=== PATIENT | male | born 1995 | race Caucasian/White ===

== ENCOUNTER 2016-08-15 23:13 | Day surgery (SDC) | payer MEDICAID ==
[2016-08-16] MEDS ORDERED: KETOROLAC 60 MG/2 ML VIAL IVP STA (01:17)
[2016-08-16] MEDS ORDERED: KETOROLAC 30 MG/ML VIAL ONE (01:18)
[2016-08-16] MEDS ORDERED: SODIUM CHLORIDE FLUSH 0.9% 10 ML SYRINGE IVP PRN (01:55)
[2016-08-16] MEDS ORDERED: ONDANSETRON 4 MG/2 ML VIAL IVP STA (02:04)
[2016-08-16] MEDS ORDERED: HYDROmorphone 1 MG/ML SYRINGE IM PRN (02:07)
[2016-08-16] MEDS: CIPROFLOXACIN 400 MG/200 ML 200 ML IV SCH ×2 (03:30→14:58)
[2016-08-16] MEDS: LACTATED RINGERS 1,000 ML IV SCH ×2 (03:30→11:10)
[2016-08-16] MEDS: metroNIDAZOLE 500 MG/100 ML 100 ML IV SCH ×4 (04:57→17:24)
[2016-08-16] MEDS: SODIUM CHLORIDE FLUSH 0.9% 10 ML SYRINGE IVP SCH ×2 (05:40→15:01)
[2016-08-16] MEDS ORDERED: DEXAMETHASONE 4 MG/ML VIAL IVP ONE (08:15)
[2016-08-16] MEDS ORDERED: ACETAMINOPHEN 1,000 MG/100 ML VIAL IV ONE (08:15)
[2016-08-16] MEDS ORDERED: PROPOFOL 200 MG/20 ML VIAL IVP ONE (08:15)
[2016-08-16] MEDS ORDERED: MIDAZOLAM 2 MG/2 ML VIAL IVP ONE (08:15)
[2016-08-16] MEDS ORDERED: LIDOCAINE-MPF 2% 5 ML VIAL IM ONE (08:15)
[2016-08-16] MEDS ORDERED: fentaNYL 100 MCG/2 ML VIAL IVP ONE (08:15)
[2016-08-16] MEDS ORDERED: ONDANSETRON 4 MG/2 ML VIAL IVP ONE (08:15)
[2016-08-16] MEDS ORDERED: BUPIVACAINE 0.5% PF 30 ML VIAL SUBQ ONE ×2 (08:24)
[2016-08-16] MEDS ORDERED: LIDOCAINE 1%-EPI 1:100000 20 ML MDV SUBQ ONE ×2 (08:24)
[2016-08-16] MEDS ORDERED: LACTATED RINGERS 1,000 ML IV ONE ×3 (08:25→10:05)
[2016-08-16] MEDS ORDERED: MEPERIDINE 50 MG/ML SYRINGE ONE (09:25)
[2016-08-16] MEDS: HYDROmorphone 1 MG/ML SYRINGE ONE ×2 (09:47→10:00)
[2016-08-16] MEDS ORDERED: oxyCOD/ACETAMIN 5 MG/325 MG TABLET PO PRN (10:49)
[2016-08-16] MEDS ORDERED: HYDROmorphone 1 MG/ML SYRINGE IVP PRN (11:30)
[2016-08-16] MEDS: ONDANSETRON 4 MG/2 ML VIAL IVP PRN ×2 (13:41→17:17)
== END 2016-08-16 19:05 | disposition home or self-care (01) ==
DX: K35.80 Unspecified acute appendicitis (principal); Z88.0 Allergy status to penicillin; F17.210 Nicotine dependence, cigarettes, uncomplicated
CPT/HCPCS: 36415; 44970; 74176; 80053; 83690; 85025; 96374; 99283; 99285; A9270; J0131; J1170; J7120

== ENCOUNTER 2018-03-19 01:18 | Emergency (ER) | payer MEDICAID ==
[2018-03-19] MEDS ORDERED: NAPROXEN 250 MG TABLET PO STA (02:18)
--- NOTE | 2018-03-19 03:04 | XRAY Report ---
Reason: ankle injury Procedure Date: 03/19/2018 Accession Number: [id number] / [id number] Procedure: XR - Ankle 3 View RT CPT Code: FULL RESULT: EXAM: RIGHT ANKLE RADIOGRAPHY EXAM DATE: 03/19/2018 02:51 AM. CLINICAL HISTORY: Ankle injury. COMPARISON: None. TECHNIQUE: 3 views. FINDINGS: Bones: Probable nondisplaced posterior malleolar fracture. No other fracture seen. Joints: Ankle mortise appears symmetric. No significant degenerative changes. Soft Tissues: There is soft tissue swelling. IMPRESSION: Probable nondisplaced posterior malleolar fracture. No other fracture seen. Since this is a rare fracture in isolation, suggest imaging of the proximal tibia/fibula to exclude a concomitant proximal fibular fracture. RADIA
[2018-03-19] MEDS ORDERED: HYDROcod/ACETAM 5/325 MG TABLET PO STA (03:14)
--- NOTE | 2018-03-19 03:54 | XRAY Report ---
Reason: ankle fx, eval for proximal fx Procedure Date: 03/19/2018 Accession Number: [id number] / [id number] Procedure: XR - Tib/Fib RT CPT Code: FULL RESULT: EXAM: RIGHT TIBIA/FIBULA RADIOGRAPHY EXAM DATE: 03/19/2018 03:43 AM. CLINICAL HISTORY: Ankle fracture, evaluate for proximal fracture. COMPARISON: ANKLE 3 VIEW RT 03/19/2018 2:40 AM. TECHNIQUE: 2 views. FINDINGS: Bones: Nondisplaced posterior malleolar distal tibial fracture again noted. No proximal lower leg fracture seen. Joints: The visualized knee and ankle joints are normal. No effusions. Soft Tissues: Ankle region swelling. IMPRESSION: Nondisplaced posterior malleolar distal tibial fracture again noted. No proximal lower leg fracture seen. RADIA
--- NOTE | 2018-03-19 04:06 | ED Physician Documentation ---
PD HPI LOWER EXT INJURY - Stated complaint Stated Complaint: R LEG PX - Chief complaint Chief Complaint: Ext Problem - History of Present Illness PD HPI LOW EXT INJURY LOCATION: Right, Knee Type of injury: Fall, Twist Where injury occurred: Other (While dancing) Timing - onset: Today Timing - details: Abrupt onset Severity Comments: Moderate Improved by: Immobilization Worsened by: Moving Associated symptoms: Swelling, Discolored. No: Weakness, Numbness Contributing factors: No: Anticoagulated Similar symptoms before: No: Has not had sx before Recently seen: No: Not recently seen - Additional information Additional information: Denies injury to his head, neck, torso or upper extremities Review of Systems Constitutional: denies: Fever Eyes: denies: Loss of vision Ears: denies: Ear pain Throat: denies: Dental pain / toothache Cardiac: denies: Chest pain / pressure GI: denies: Abdominal Pain Musculoskeletal: reports: Extremity pain, Joint pain, Joint swelling. denies: Neck pain Neurologic: denies: Headache PD PAST MEDICAL HISTORY - Past Medical History Past Medical History: Yes Psych: Anxiety - Past Surgical History Past Surgical History: No - Present Medications Home Medications: Ambulatory Orders Medication Instructions Recorded Confirmed Ciprofloxacin/Ciprofloxa HCl 500 mg PO BID #14 tbmp.24hr 08/16/16 [Ciprofloxacin ER 500 mg Tablet] Metronidazole 500 mg PO TID #21 tablet 08/16/16 Promethazine [Phenergan] 25 mg PO Q6H #10 tablet 08/16/16 oxyCODONE/ACET 5/325 [Percocet 5 2 each PO Q4-6H #30 tablet 08/16/16 mg/325 mg] Hydrocodone/Acetaminophen 1 each PO Q6H PRN #14 tablet 03/19/18 [Hydrocodon-Acetaminophen 5-325] - Allergies Allergies/Adverse Reactions: Allergies Allergy/AdvReac Type Severity Reaction Status Date / Time Penicillins Allergy Unknown Verified 03/19/18 01:31 - Social History Does the pt smoke?: No Smoking Status: Former smoker Does the pt drink ETOH?: Yes Does the pt have substance abuse?: No - Immunizations Immunizations are current?: Yes - POLST Patient has POLST: No PD ED PE NORMAL - General General: Alert and oriented X 3, No acute distress - HEENT HEENT: Atraumatic, PERRL, EOMI, Ears normal - Derm Derm: Normal color - Extremities Extremities: No deformity. No: No tenderness to palpate (The patient has tenderness to palpation of the right ankle and there is some mild swelling and ecchymosis. The patient has no tenderness in the foot or proximal fibular head. The patient has full active range of motion of the hip and knee. The patient has a normal radial pulse and normal cap refill), Normal ROM s pain - Neuro Neuro: Alert and oriented X 3, Normal speech - Psych Psych: Normal affect Results - Vitals Vitals: Vital Signs - 24 hr 03/19/18 01:27 Temperature 36.3 C L Heart Rate 97 Respiratory 18 Rate Blood Pressure 137/82 H O2 Saturation 97 Oxygen O2 Source Room air - Rads (name of study) XR ankle Radiology: Final report received (IMPRESSION: Nondisplaced posterior malleolar distal tibial fracture again noted. No proximal lower leg fracture) PD MEDICAL DECISION MAKING - ED course ED course: The patient will be placed in a posterior splint, I have advised that he should be nonweightbearing and recommended close follow-up with orthopedics for definitive management. The patient understands and agrees. I discussed warning signs and recommended returning to the emergency department immediately for worsening or any concerns. - Sepsis Event Vital Signs: Vital Signs - 24 hr 03/19/18 01:27 Temperature 36.3 C L Heart Rate 97 Respiratory 18 Rate Blood Pressure 137/82 H O2 Saturation 97 Oxygen O2 Source Room air Departure - Departure Disposition: 01 Home, Self Care Clinical Impression: Ankle fracture Qualifiers: Encounter type: initial encounter Fracture type: closed Laterality: right Qualified Code(s): S82.891A - Other fracture of right lower leg, initial encounter for closed fracture Condition: Good Instructions: Ankle Fx Follow-Up: Lee Jones MD [Provider Admit Priv/Credential] - (Call on Tuesday to schedule an appointment for definitive management of your ankle fracture) Prescriptions: Hydrocodone/Acetaminophen [Hydrocodon-Acetaminophen 5-325] 1 each PO Q6H PRN #14 tablet PRN Reason: pain Comments: Please do not bear weight on your ankle. Please follow-up with orthopedics. Please return to the emergency department immediately for worsening symptoms or any concerns
[2018-03-19 04:23] VITALS: BP 133/74
== END 2018-03-19 04:52 | disposition home or self-care (01) ==
LOC: ED 01:18
DX: S82.891A Other fracture of right lower leg, initial encounter for closed fracture (principal); W19.XXXA Unspecified fall, initial encounter; X50.1XXA Overexertion from prolonged static or awkward postures, initial encounter; Y93.41 Activity, dancing; Z87.891 Personal history of nicotine dependence
CPT/HCPCS: 29515; 73590; 73610; 99283; A9270

== ENCOUNTER 2019-07-25 21:36 | Emergency (ER) | payer MEDICAID ==
[2019-07-25] MEDS ORDERED: IBUPROFEN 800 MG TABLET PO STA (21:53)
[2019-07-25 21:57] LABS: RAPID STREP SCREEN Negative (Negative)
--- NOTE | 2019-07-25 22:02 | ED Physician Documentation ---
History of Present Illness - Stated complaint Stated Complaint: DIFF BREATHING - Chief complaint Chief Complaint: Heent - History obtained from History obtained from: Patient (24-year-old history of anxiety presented with substernal sharp chest pain to deep inspiration for last 2 days. Last week patient had a urinary tract upper respiratory tract infection with rhinorrhea and cough. This has improved. No complaint of fever no chill. No nausea no vomiting. Since yesterday there is the sensation of sharp chest pain on deep inspiration. Patient appears mildly anxious. Pain is nonradiating), Family - History of Present Illness Timing: Yesterday Pain level max: 5 Pain level now: 5 Review of Systems Ten Systems: 10 systems reviewed and negative Constitutional: reports: Reviewed and negative Eyes: reports: Reviewed and negative Ears: reports: Reviewed and negative Nose: reports: Reviewed and negative Throat: reports: Reviewed and negative Cardiac: reports: Chest pain / pressure, Reviewed and negative Respiratory: reports: Reviewed and negative GI: reports: Reviewed and negative : reports: Reviewed and negative Skin: reports: Reviewed and negative Musculoskeletal: reports: Reviewed and negative Neurologic: reports: Reviewed and negative Psychiatric: reports: Reviewed and negative Endocrine: reports: Reviewed and negative Immunocompromised: reports: Reviewed and negative PD PAST MEDICAL HISTORY - Past Medical History Past Medical History: Yes Psych: Anxiety - Past Surgical History Past Surgical History: No - Present Medications Home Medications: Ambulatory Orders Medication Instructions Recorded Confirmed Ciprofloxacin/Ciprofloxa HCl 500 mg PO BID #14 tbmp.24hr 08/16/16 [Ciprofloxacin ER 500 mg Tablet] Metronidazole 500 mg PO TID #21 tablet 08/16/16 Promethazine [Phenergan] 25 mg PO Q6H #10 tablet 08/16/16 oxyCODONE/ACET 5/325 [Percocet 5 2 each PO Q4-6H #30 tablet 08/16/16 mg/325 mg] Hydrocodone/Acetaminophen 1 each PO Q6H PRN #14 tablet 03/19/18 [Hydrocodon-Acetaminophen 5-325] Ibuprofen [Motrin] 800 mg PO Q8H PRN #30 tablet 07/25/19 - Allergies Allergies/Adverse Reactions: Allergies Allergy/AdvReac Type Severity Reaction Status Date / Time Penicillins Allergy Unknown Verified 07/25/19 22:04 - Social History Does the pt smoke?: No Smoking Status: Former smoker Does the pt drink ETOH?: Yes Does the pt have substance abuse?: No - Immunizations Immunizations are current?: Yes - POLST Patient has POLST: No PD ED PE NORMAL - Vitals Vital signs reviewed: Yes - General General: Alert and oriented X 3, No acute distress - HEENT HEENT: PERRL - Neck Neck: Supple, no meningeal sign - Cardiac Cardiac: RRR, No murmur - Respiratory Respiratory: Clear bilaterally, Other (sharp chest pain during inspiration) - Abdomen Abdomen: Normal bowel sounds, Soft, Non tender, Non distended - Derm Derm: Warm and dry - Extremities Extremities: No deformity - Neuro Neuro: Alert and oriented X 3 - Psych Psych: Normal mood, Normal affect Results - Vitals Vitals: Vital Signs - 24 hr 07/25/19 07/25/19 21:38 22:29 Temperature 37.0 C Heart Rate 83 72 Respiratory 16 17 Rate Blood Pressure 126/90 H 136/88 H O2 Saturation 98 99 Oxygen O2 Source Room air - Labs Labs: Laboratory Tests 07/25/19 21:45 Group A Strep Rapid Negative PD MEDICAL DECISION MAKING - ED course Complexity details: d/w patient, d/w family ED course: Patient is given impression of pleuritic chest pain that may be related to recent URIs. In emergency room patient is alert and oriented comfortable. Suspicion for acute coronary syndrome is minimum. He has no risk factor for cardiac issue. He is recommended to take ibuprofen 800 mg every 8 hours as needed for the chest wall pain. If symptoms worsen, please contact primary care doctor's office for reassessment and or return to the emergency room for further evaluation Departure - Departure Disposition: 01 Home, Self Care Clinical Impression: Pleuritis Condition: Good Record reviewed to determine appropriate education?: No Instructions: Pleurisy Prescriptions: Ibuprofen [Motrin] 800 mg PO Q8H PRN #30 tablet PRN Reason: PAIN &/OR FEVER Comments: Please take ibuprofen 800 mg as needed every 8 hours for the pain to your chest. Establish and follow-up with your primary care doctor in the next 5 to 7 days. If there is worsening chest pain that is not resolving, please return to the emergency room for further management Discharge Date/Time: 07/25/19 22:30
[2019-07-25 22:30] VITALS: BP 136/88
== END 2019-07-25 22:30 | disposition home or self-care (01) ==
LOC: ED 21:36
DX: R09.1 Pleurisy (principal); Z87.891 Personal history of nicotine dependence; F41.9 Anxiety disorder, unspecified
CPT/HCPCS: 87070; 87077; 87430; 99283; 99284; A9270

== ENCOUNTER 2021-12-04 12:53 | Outpatient (CLI) | payer MEDICAID ==
--- NOTE | 2021-12-04 14:18 | Ultrasound Report ---
PROCEDURE: Testicle INDICATIONS: MASS IN LEFT SCROTUM TECHNIQUE: Real-time scanning was performed of the scrotum and testicles, with image documentation. Color and p ulse Doppler interrogation was performed of both testicles. COMPARISON: None. FINDINGS: Right: Testicle is normal in size at 6.0 x 2.8 x 3.5 cm, and homogenous in echotexture. Epididymis is normal in overall size and morphology. No hydrocele or varicoceles. Overlying scrotal skin is no rmal in thickness. Left: Testicle is normal in size at 5.9 x 2.6 x 4.0 cm, and homogeneous in echotexture. Small left e pididymal head cysts. Otherwise the epididymis is normal in overall size and morphology. No hydrocel e or varicoceles. Overlying scrotal skin is normal in thickness. Doppler: Color and pulse Doppler demonstrate normal and symmetric arterial flow in both testicles. A left inguinal hernia containing fat is noted with a 1.3 cm defect and is nonreducible. The hernia m easures approximately 7.0 x 2.2 x 4.2 cm and extends from the scrotum superiorly at the spermatic cor d. IMPRESSION: 1. Normal scrotum/left testicle. 2. Fat-containing nonreducing left inguinal hernia measuring 7.0 x 2.2 x 4.2 cm. Reviewed by: Romario Meehan on 12/04/2021 2:16 PM PDT Approved by: Romario Meehan on 12/04/2021 2:16 PM PDT Station ID: [id number]
== END 2021-12-04 12:54 | disposition home or self-care (01) ==
LOC: DI 12:53
PROVIDERS: ATTEND Student in an Organized Health Care Education/Training Program
DX: K40.90 Unilateral inguinal hernia, without obstruction or gangrene, not specified as recurrent (principal)

== ENCOUNTER 2022-03-08 09:22 | Day surgery (SDC) | payer OTHER ==
[2022-03-08] MEDS ORDERED: LACTATED RINGERS 1,000 ML IV ONE ×2 (09:33→13:08)
[2022-03-08] MEDS ORDERED: ACETAMINOPHEN 500 MG TABLET PO ONE (09:38)
[2022-03-08] MEDS ORDERED: CEFAZOLIN 2G/50ML 0.9% NS 2 GM/50 ML BAG IV ONE (09:38)
[2022-03-08] MEDS ORDERED: CELECOXIB 100 MG CAPSULE PO ONE (09:38)
[2022-03-08] MEDS ORDERED: GABAPENTIN 400 MG CAPSULE ONE (09:38)
[2022-03-08] MEDS ORDERED: LIDOCAINE MPF 2%-EPI 1:200000 20 ML VIAL ONE (10:15)
[2022-03-08] MEDS ORDERED: HYDROmorphone 0.5 MG/0.5 ML SYRINGE IVP PRN ×2 (10:19→13:05)
[2022-03-08] MEDS ORDERED: METOCLOPRAMIDE 10 MG/2 ML VIAL IVP PRN (10:19)
[2022-03-08] MEDS ORDERED: ePHEDrine 50 MG/ML VIAL IVP PRN (10:19)
[2022-03-08] MEDS ORDERED: ATROPINE ABBOJECT 1 MG/10 ML SYRINGE IVP PRN (10:19)
[2022-03-08] MEDS ORDERED: ONDANSETRON 4 MG/2 ML VIAL IVP PRN ×2 (10:19→13:05)
[2022-03-08] MEDS ORDERED: MORPHINE 2 MG/ML CARPUJECT IVP PRN (10:19)
[2022-03-08] MEDS ORDERED: NALOXONE 0.4 MG/ML VIAL IVP PRN (10:19)
[2022-03-08] MEDS ORDERED: fentaNYL 100 MCG/2 ML VIAL IVP PRN (10:19)
--- NOTE | 2022-03-08 10:19 | ANESTHESIA ---
Pre-Anesthesia VS, & Labs - Diagnosis left inguinal hernia - Procedure left inguinal hernia repair Vital Signs: Temp Pulse Resp BP Pulse Ox 36.7 C 59 L 16 126/78 98 03/08/22 09:33 03/08/22 09:33 03/08/22 09:33 03/08/22 09:33 03/08/22 09:33 Height: 6 ft Weight (kg): 105.9 kg Body Mass Index: 31.6 BMI Classification: Obese - NPO >8 hours Home Medications and Allergies Home Medications: Ambulatory Orders Ibuprofen [Motrin] 800 mg PO BID 03/05/22 Ibuprofen [Motrin] 800 mg PO BID 03/05/22 Allergies/Adverse Reactions: Allergies Allergy/AdvReac Type Severity Reaction Status Date / Time Penicillins Allergy Unknown Verified 12/01/21 10:27 Anes History & Medical History - Anesthetic History Anesthesia Complications: reports: No previous complications - Medical History Cardiovascular: reports: None Pulmonary: reports: None Gastrointestinal: reports: None Urinary: reports: None Neuro: reports: None Musculoskeletal: reports: None Endocrine/Autoimmune: reports: None Blood Disorders: reports: Anemia Skin: reports: None Smoking Status: Former smoker History of Cancer?: No - Surgical History General: reports: Appendectomy Exam General: Alert, Oriented x3 Dental: WNL Mouth Opening: Greater than 4 Fingerbreadths Mallampati classification: II Thyromental Distance: greater than 6 cm Respiratory: Lungs clear Cardiovascular: Regular rate Plan Anesthesia Type: General Consent for Procedure(s) Verified and Reviewed: Yes Code Status: Attempt Resuscitation ASA classification: 2-Mild systemic disease Is this case an emergency?: No
[2022-03-08] MEDS ORDERED: MIDAZOLAM 2 MG/2 ML VIAL ONE (10:39)
[2022-03-08] MEDS ORDERED: LIDOCAINE-MPF 2% 5 ML VIAL ONE (10:47)
[2022-03-08] MEDS ORDERED: ONDANSETRON 4 MG/2 ML VIAL ONE (10:56)
[2022-03-08] MEDS ORDERED: BUPIVACAINE 0.25% PF 10 ML VIAL ONE (10:56)
[2022-03-08] MEDS ORDERED: LIDOCAINE MPF 2%-EPI 1:200000 10 ML VIAL SUBQ ONE ×2 (10:56)
[2022-03-08] MEDS ORDERED: DEXAMETHASONE 4 MG/ML VIAL ONE (10:56)
[2022-03-08] MEDS ORDERED: BUPIVACAINE 0.25% PF 10 ML VIAL SUBQ ONE ×2 (10:57)
[2022-03-08] MEDS ORDERED: LACTATED RINGERS 1,000 ML IV SCH (11:00)
[2022-03-08] MEDS ORDERED: fentaNYL 100 MCG/2 ML VIAL ONE (11:15)
[2022-03-08] MEDS ORDERED: HYDROcod/ACETAM 5/325 MG TABLET PO PRN (13:05)
--- NOTE | 2022-03-08 13:14 | OPERATIVE REPORT ---
Operative Report - General Procedure Date: 03/08/22 Pre-Op Diagnosis: left inguinal hernia Procedure Performed: open left inguinal hernia repair with mesh Post Op Diagnosis: indirect left inguinal hernia - Procedure Note Primary Surgeon: Dr. Sirisha Navas Anesthesia Technique: General LMA, Local, Regional block Pathology: hernia sac sent to path Estimated Blood Loss (mL): 20 Indications: The patient has developed left groin pain over the last several years. He has noted a bulge in the area for quite some time. It has become increasingly painful to him especially with activity. He was seen and evaluated in the clinic where he was diagnosed with a large direct inguinal hernia. At that time , we discussed the risks, benefits, and alternatives of open inguinal hernia repair with mesh. These risks include but are not limited to bleeding, infection, damage to surrounding structures, infection of the mesh requiring removal, recurrence of the hernia, chronic pain, and the need for further surgeries or procedures. The patient voiced understanding, his questions were answered, and he wished to proceed. A consent was signed by the patient in clinic. Findings: 1. Large indirect inguinal hernia with extensive scarring 2. Ilioinguinal nerve sacrificed 3. PHSE mesh used Complications: none - Other Other Information/Narrative: The patient was brought to the operative suite and placed in the supine position. General LMA anesthesia was induced. Preop antibiotics were given and ERAS protocol was followed. Patient was prepped and draped in the usual sterile fashion. A preop surgical timeout was performed. Next, local was used to perform an ilioinguinal nerve block. The incision was planned overlying the area of the hernia following the skin crease. An incision was made with a 15 blade scalpel and carried down through the skin and subcutaneous tissues to the level of the external abdominal oblique. Excellent hemostasis was maintained. Local was injected just deep to the external abd ominal oblique and the external abdominal oblique muscle was opened using a 15 blade scalpel following the muscle fibers. The incision was enlarged using Metzenbaum scissors through the external ingui nal ring. Next, the cord structures were isolated from the surrounding tissues and a Winters drain was passed around them. The hernia sac was identified and isolated from the surrounding tissues taking great care to avoid any cord structures. This was quite difficult and took quite sometime due to the large size of the sac and extensive scarring. The patient was noted to have an indirect inguinal hernia. Once the sac was completely isolated from the surrounding tissues, a high suture ligation of the sac was preformed with 2-0 vicry. The stump from the sac was reduced and the preperitoneal space was developed. A PHSE Prolene hernia system was brought onto the field and placed in the preperitoneal space the external component was opened. It was tacked medially and inferiorly to the pubic tubercle using a 2-0 PDS suture. It was also tacked to the shelving edge inferiorly and laterally and to the shelving edge superiorly to allow it to lie flat. A slit was made to accommodate the cord structures and the external inguinal ring was re-created. Care was taken to ensure that there was adequate space to accommodate the cord structures and swelling postoperatively. The corners of the mesh were reapproximated to re-create this ring using 2-0 PDS. Additional local was injected into the tissues in the areas where the sutures were placed. Next, the external abdominal oblique muscle was reapproximated with 2-0 Vicryl in a running fashion. Then, Devendra's fascia was reapproximated with 3-0 Vicryl in an interrupted fashion. The subcutaneous tissues were irrigated with warm normal saline and hemostasis was confirmed. The deep dermal tissues were reapproximated with 3-0 Vicryl in an interrupted fashion. Finally, 4-0 Monocryl was used to reapproximate the skin edges in a running subcuticular fashion. A sterile dressing of skin glue was placed. The patient tolerated the procedure well. Both testicles were noted to be within the scrotum at the end of the case. There were no complications.
[2022-03-08] MEDS ORDERED: HYDROcod/ACETAM 5/325 MG TABLET ONE (13:59)
[2022-03-08 14:07] VITALS: BP 145/98
--- NOTE | 2022-03-08 16:05 | ANESTHESIA POST OP EVALUATION ---
Anesthesia Post Eval - Post Anesthesia Eval Vitals: Last Vital Signs Temp 36.4 C L 03/08/22 14:06 Pulse 51 L 03/08/22 14:06 Resp 16 03/08/22 14:06 BP 145/98 H 03/08/22 14:06 Pulse Ox 98 03/08/22 14:06 CV Function Including HR & BP: Stable Pain Control: Satisfactory Nausea & Vomiting: Negative Mental Status: Baseline Respiratory Status: Airway Patent Hydration Status: Satisfactory Anesthesia Complications: None
== END 2022-03-08 09:23 | disposition home or self-care (01) ==
LOC: SDS 09:22
PROVIDERS: ATTEND Surgery
PROC: 0YU60JZ Supplement Left Inguinal Region with Synthetic Substitute, Open Approach (ICD-10-PCS; principal; 2022-03-08 12:15)
DX: K40.90 Unilateral inguinal hernia, without obstruction or gangrene, not specified as recurrent (principal); E66.9 Obesity, unspecified; Z68.31 Body mass index [BMI] 31.0-31.9, adult; Z87.891 Personal history of nicotine dependence
CPT/HCPCS: 49505; A9270; C1713; J0690; J7120

== ENCOUNTER 2023-01-02 17:59 | Emergency (ER) | payer BC, OTHER ==
[2023-01-02 18:07] VITALS: BP 147/93
[2023-01-02] MEDS ORDERED: IBUPROFEN 600 MG TABLET PO STA (18:40)
[2023-01-02] MEDS ORDERED: oxyCODONE 5 MG TABLET PO STA (18:40)
[2023-01-02] MEDS ORDERED: CLINDAMYCIN 150 MG CAPSULE PO STA (18:40)
[2023-01-02] MEDS ORDERED: oxyCODONE/ACET 5/325 Prepack 4 PO STA (18:40)
--- NOTE | 2023-01-02 18:41 | ED Physician Documentation ---
History of Present Illness - Stated complaint Stated Complaint: TOOTH INJ - Chief complaint Chief Complaint: Heent - History obtained from History obtained from: Patient (27-year-old gentleman has had progressive severe dental pain since last night. He is seeing his dentist tomorrow.) PD PAST MEDICAL HISTORY - Past Medical History Cardiovascular: None Respiratory: None Neuro: None Endocrine/Autoimmune: None GI: None : None HEENT: None Psych: None, Anxiety Musculoskeletal: None Derm: None - Past Surgical History Past Surgical History: No General: Appendectomy - Present Medications Home Medications: Ambulatory Orders Medication Instructions Recorded Confirmed Ibuprofen [Motrin] 800 mg PO BID 03/05/22 03/05/22 HYDROcod/ACETAM 5/325 [[place] 5/325] 1 tab PO Q4H PRN #15 tablet 03/08/22 Oxycodone HCl/Acetaminophen 1 - 2 each PO Q6H PRN #14 tablet 01/02/23 [Percocet 5-325 mg Tablet] clindamycin HCL [Cleocin HCl] 300 mg PO QID #28 cap 01/02/23 - Allergies Allergies/Adverse Reactions: Allergies Allergy/AdvReac Type Severity Reaction Status Date / Time Penicillins Allergy Unknown Verified 12/01/21 10:27 - Social History Does the pt smoke?: No Smoking Status: Former smoker Does the pt drink ETOH?: Yes Does the pt have substance abuse?: No - Immunizations Immunizations are current?: Yes - POLST Patient has POLST: No PD ED PE NORMAL - Vitals Vital signs reviewed: Yes - General General: Alert and oriented X 3, No acute distress - HEENT HEENT: Other (Large cavity right maxillary canine with tenderness but no swelling or trismus.) - Neuro Neuro: Alert and oriented X 3, Normal speech Results - Vitals Vitals: Vital Signs - 24 hr 01/02/23 18:02 Temperature 36.9 C Heart Rate 64 Respiratory 20 Rate Blood Pressure 147/93 H O2 Saturation 100 Oxygen O2 Source Room air Departure - Departure Disposition: 01 Home, Self Care Clinical Impression: Dental abscess Condition: Good Record reviewed to determine appropriate education?: Yes Instructions: ED Abscess Dental Prescriptions: clindamycin HCL [Cleocin HCl] 300 mg PO QID #28 cap Oxycodone HCl/Acetaminophen [Percocet 5-325 mg Tablet] 1 - 2 each PO Q6H PRN #14 tablet PRN Reason: pain Comments: Follow-up with your dentist tomorrow as scheduled. I sent your prescription electronically to the pharmacy of your choice. I am prescribing a short course of narcotic pain medication for you. These are potentially dangerous and addictive medications that should be used carefully. These medications may constipate you. Take an eahj-ari-wjwcowj stool softener (docusate) twice daily with plenty of water while taking these medications. If you go 24 hours without a bowel movement, take whtf-fbu-[id number] miralax, per package instructions. Do not drink or drive while taking these medications. If you received narcotic or sedating medications while in the emergency department, do not drive for 24 hours. Store this medication in a safe, secure place and out of reach of children. It is a violation of federal law to give or sell this medication to another person or to use in a manner other than prescribed. The ED will not refill narcotic prescriptions, including prescriptions lost or stolen. To dispose of unwanted medications: 1. [facility] provides a drop box for medication in pill form only (no liquids) 8:00 am to 4:30 p.m. Tuesday-Tuesday in the lobby of the [facility], [address] Empty pills into ziplock bag before disposal. Call [phone] for information. 2.[employer] is a free service available to all [facility] residents. Go to [email or web address]/ Note that many narcotic pain relievers also contain Tylenol/acetaminophen. Please ensure that your total dose of acetaminophen from all sources does not exceed 3 g (3000 mg) per day.
== END 2023-01-02 19:18 | disposition home or self-care (01) ==
LOC: ED 17:59
DX: K04.7 Periapical abscess without sinus (principal)
CPT/HCPCS: 99282; 99283; A9270

== ENCOUNTER 2023-02-20 11:14 | Emergency (ER) | payer BC ==
[2023-02-20 11:36] VITALS: BP 132/84; O2SAT 98
--- NOTE | 2023-02-20 12:26 | XRAY Report ---
PROCEDURE: Knee 4 View LT INDICATIONS: Trauma TECHNIQUE: 4 views of the left knee(s) were acquired. COMPARISON: None. FINDINGS: Bones: No fractures or dislocations. No suspicious bony lesions the knee joint spaces are well pres erved. Soft tissues: No significant knee joint effusion. No suspicious soft tissue calcifications or masses . IMPRESSION: No acute bony abnormality. If it would be helpful for clinical management decision making, please consider a dedicated, schedule d knee MRI for further evaluation (assuming that there is no contraindication). Reviewed by: Adiel Corley MD on 02/20/2023 11:25 AM JANIE Approved by: Adiel Corley MD on 02/20/2023 11:25 AM JANIE Station ID: [id number]
--- NOTE | 2023-02-20 12:27 | ED Physician Documentation ---
PD HPI LOWER EXT INJURY - Stated complaint Stated Complaint: LT LEG PX - Chief complaint Chief Complaint: Trauma Ext - History obtained from History obtained from: Patient - History of Present Illness PD HPI LOW EXT INJURY LOCATION: Left, Knee Type of injury: Twist (fell while walking, with inversion/valgus movement and sat to ground. Pain medial knee.) Timing - onset: Yesterday Timing - details: Abrupt onset, Still present Worsened by: Moving, Palpating, Other (walking) Associated symptoms: No: Weakness, Numbness Similar symptoms before: Has not had sx before Review of Systems Skin: denies: Abrasion (s), Laceration (s) Neurologic: denies: Focal weakness, Numbness PD PAST MEDICAL HISTORY - Past Medical History Cardiovascular: None Respiratory: None Neuro: None Endocrine/Autoimmune: None GI: None : None HEENT: None Psych: None, Anxiety Musculoskeletal: None Derm: None - Past Surgical History Past Surgical History: No General: Appendectomy - Present Medications Home Medications: Ambulatory Orders Medication Instructions Recorded Confirmed Ibuprofen [Motrin] 800 mg PO BID 03/05/22 03/05/22 HYDROcod/ACETAM 5/325 [[place] 5/325] 1 tab PO Q4H PRN #15 tablet 03/08/22 Oxycodone HCl/Acetaminophen 1 - 2 each PO Q6H PRN #14 tablet 01/02/23 [Percocet 5-325 mg Tablet] clindamycin HCL [Cleocin HCl] 300 mg PO QID #28 cap 01/02/23 - Allergies Allergies/Adverse Reactions: Allergies Allergy/AdvReac Type Severity Reaction Status Date / Time Penicillins Allergy Unknown Verified 02/20/23 11:32 - Social History Does the pt smoke?: No Smoking Status: Former smoker Does the pt drink ETOH?: Yes Does the pt have substance abuse?: No - Immunizations Immunizations are current?: Yes - POLST Patient has POLST: No PD ED PE NORMAL - Vitals Vital signs reviewed: Yes - General General: Alert and oriented X 3, No acute distress, Well developed/nourished, Other (limping gait) - Derm Derm: Normal color, Warm and dry - Extremities Extremities: Other (tender medial joint line. No laxity on stress testing. Cruciate testing without pain nor laxity. No effusion. ) - Neuro Neuro: Alert and oriented X 3, No motor deficit, No sensory deficit, Normal speech Results - Vitals Vitals: Vital Signs - 24 hr 02/20/23 11:30 Temperature 37.0 C Heart Rate 66 Respiratory 20 Rate Blood Pressure 132/84 H O2 Saturation 98 Oxygen O2 Source Room air - Rads (name of study) left knee Relevant Findings:: Prelim report reviewed, EMP independent interpretation of test (no fractures) PD Medical Decision Making - ED course Complexity details: considered differential (exam and symptoms c/w MCL strain. Does not feel meniscal. ), d/w patient Departure - Departure Disposition: 01 Home, Self Care Clinical Impression: MCL sprain of left knee Qualifiers: Encounter type: initial encounter Qualified Code(s): S83.412A - Sprain of medial collateral ligament of left knee, initial encounter Strain of knee and leg, left Qualifiers: Encounter type: initial encounter Qualified Code(s): S86.912A - Strain of unspecified muscle(s) and tendon(s) at lower leg level, left leg, initial encounter Condition: Stable Record reviewed to determine appropriate education?: Yes Instructions: ED Sprain Knee Follow-Up: Orthopedic Care [Provider Group] Comments: This seems like a strain/sprain of the medial collateral ligament (MCL) of the knee and also likely some pulling of the abductor muscle tendons on the inside of the knee as well. They should improve with time and supported movement with a knee brace. Initially use your crutches at home for partial to no weightbearing as needed for the comfort. Range of motion of the knee to a limited degree is fine and progressing weightbearing as tolerated over the next several days to a week as okay as well. Use the knee brace when up and around for the next likely 2 to 3 weeks to allow good healing of the structures. We have set the range of motion of the knee brace to be 0 to 90 degrees at this point. Follow-up with orthopedic clinic in the next 1-1/2 weeks if not improved really well. Call for an appointment if needed. Ibuprofen 2-3 times daily with food. Add Tylenol every 4-6 hours if needed for pain. Minimal standing, walking for the next week while this initially start healing. Forms: PCP List Discharge Date/Time: 02/20/23 12:55
== END 2023-02-20 12:55 | disposition home or self-care (01) ==
LOC: ED 11:14
DX: S83.412A Sprain of medial collateral ligament of left knee, initial encounter (principal); S86.912A Strain of unspecified muscle(s) and tendon(s) at lower leg level, left leg, initial encounter; X50.1XXA Overexertion from prolonged static or awkward postures, initial encounter; Y93.01 Activity, walking, marching and hiking; Z87.891 Personal history of nicotine dependence
CPT/HCPCS: 99283

== ENCOUNTER 2023-09-05 08:00 | Outpatient (CLI) | payer OTHER | END 2023-09-05 23:59 | disposition home or self-care (01) | LOC: LAB.WCP 08:00 | PROVIDERS: ATTEND Family Medicine | DX: F90.0 Attention-deficit hyperactivity disorder, predominantly inattentive type (principal) | CPT/HCPCS: 80307; 81599 ==